=== PATIENT | male | born 1945 | race Caucasian/White ===

== ENCOUNTER 2017-01-22 20:28 | Emergency (ER) | payer MEDICARE, OTHER ==
[2017-01-22] MEDS ORDERED: HYDROCODONE/ACETAMINOPHEN 5/325MG TABLET ONE (23:02)
--- NOTE | 2017-01-23 07:33 | RAD ---
KNEE LEFT 3 VIEWS HISTORY: Knee pain after being kicked by a horse. COMPARISONS: 01/15/2005. FINDINGS: 4 views of the left knee demonstrate grossly intact osseous structures. There is beaking of the tibial spines with medial compartment joint space loss. No lytic or blastic lesions are seen. No evidence of a significant knee joint effusion is identified. Dense atherosclerotic vascular calcification is incidentally seen. IMPRESSION: 1. Left knee osteoarthritic changes with medial compartment joint space loss. 2. Dense atherosclerotic vascular calcification.
== END 2017-01-22 23:12 | disposition home or self-care (01) ==
LOC: ED 20:28
DX: S80.02XA Contusion of left knee, initial encounter (principal); E11.9 Type 2 diabetes mellitus without complications; I10 Essential (primary) hypertension; I25.2 Old myocardial infarction; Z86.73 Personal history of transient ischemic attack (TIA), and cerebral infarction without residual deficits; Z79.84 Long term (current) use of oral hypoglycemic drugs; W55.12XA Struck by horse, initial encounter; Y92.9 Unspecified place or not applicable
CPT/HCPCS: 73562; 99283 ×2; A9270